=== PATIENT | female | born 1985 | race Two or more races ===

== ENCOUNTER 2017-01-31 14:23 | Inpatient (IN) | payer OTHER ==
[2017-01-31 15:49] VITALS: BMI 27.8
--- NOTE | 2017-01-31 17:20 | HP ---
Admission ROS [facility] - [facility] Chief Complaint: I WANT TO GO TO REHAB Allergies/Adverse Reactions: Allergies Allergy/AdvReac Type Severity Reaction Status Date / Time No Known Allergies Allergy Verified 01/31/17 17:18 History of Present Illness: 31 YEARS OLD FEMALE WITH LONG HISTORY OF ALCOHOL DEPENDENCE, DENIES MEDICAL ISSUE, HAS DEPRESSION IS ADMITTED TO REHAB Exam Limitations: No Limitations - Ebola screening Have you traveled outside of the country in the last 21 days: No Have you had contact with anyone from an Ebola affected area: No Have you been sick,other than usual withdrawal symptoms: No Do you have a fever: No - Review of Systems Constitutional: Weight Stable EENT: reports: Other (EYE GLASSES) Respiratory: reports: No Symptoms reported Cardiac: reports: No Symptoms Reported GI: reports: No Symptoms Reported : reports: No Symptoms Reported Musculoskeletal: reports: No Symptoms Reported Integumentary: reports: No Symptoms Reported Neuro: reports: No Symptoms reported Endocrine: reports: No Symptoms Reported Hematology: reports: No Symptoms Reported Psychiatric: reports: Judgement Intact, Orientated x3, Depressed Other Systems: Reviewed and Negative Patient History - Patient Medical History Hx Anemia: Yes (NO TREATMENT) Hx Asthma: No Hx Chronic Obstructive Pulmonary Disease (COPD): No Hx Cancer: No Hx Cardiac Disorders: No Hx Congestive Heart Failure: No Hx Hypertension: No Hx Hypercholesterolemia: No Hx Pacemaker: No HX Cerebrovascular Accident: No Hx Seizures: No Hx Dementia: No Hx Diabetes: No Hx Gastrointestinal Disorders: No Hx Liver Disease: No Hx Genitourinary Disorders: No Hx Sexually Transmitted Disorders: No Hx Renal Disease (ESRD): No Hx Thyroid Disease: No Hx Human Immunodeficiency Virus (HIV): No Hx Hepatitis C: No Hx Depression: Yes Hx Suicide Attempt: Yes (2014 ALCOHOL POISON) Hx Bipolar Disorder: No Hx Schizophrenia: No - Patient Surgical History Past Surgical History: Yes Other Surgical History: TOOTH 2011 - PPD History Previous Implant?: Yes Documented Results: Negative w/o proof Implanted On Prior R Admission?: No PPD to be Administered?: Yes - Reproductive History Patient is a Female of Child Bearing Age (11 -55 yrs old): Yes Last Menstrual Period: 12/28/16 Patient : No - Smoking Cessation Smoking history: Never smoked Have you smoked in the past 12 months: No Cigars Per Day: 0 Hx Chewing Tobacco Use: No Initiated information on smoking cessation: No - Substance & Tx. History Hx Alcohol Use: Yes Hx Substance Use: No Substance Use Type: Alcohol Hx Substance Use Treatment: Yes - Substances Abused Alcohol Route: Oral Frequency: Daily Amount used: 2 PINFLAQUITO CHIN Age of first use: 21 Date of Last Use: 01/19/17 Family Disease History - Family Disease History Family Disease History: Diabetes: Grandparent, Father (GORDY), Heart Disease: Father, Mother Admission Physical Exam [facility] - Vital Signs Vital Signs: Vital Signs - 24 hr 01/31/17 15:47 Temperature 97.8 F Pulse Rate 74 Respiratory 18 Rate Blood Pressure 100/71 - Physical General Appearance: Yes: No Apparent Distress, Nourished, Appropriately Dressed HEENTM: Yes: Hearing grossly Normal, Normal ENT Inspection, Normocephalic, Normal Voice Respiratory: Yes: Chest Non-Tender, Lungs Clear, Normal Breath Sounds, No Respiratory Distress, No Accessory Muscle Use Neck: Yes: Supple, Trachea in good position Breast: Yes: Breasts Symetrical Cardiology: Yes: Regular Rhythm, Regular Rate, S1, S2 Abdominal: Yes: Non Tender, Soft Genitourinary: Yes: Within Normal Limits Back: Yes: Normal Inspection Musculoskeletal: Yes: full range of Motion, Gait Steady Extremities: Yes: Normal Inspection, Normal Range of Motion, Non-Tender Neurological: Yes: Fully Oriented, Alert, Motor Strength 5/5, Normal Response, Depressed Affect Integumentary: Yes: Warm, Other (BRUISES BOTH ARMS) Lymphatic: Yes: Within Normal Limits - Diagnostic (1) Alcohol dependence with uncomplicated withdrawal Current Visit: Yes Status: Acute (2) Depression Current Visit: Yes Status: Acute Qualifiers: Depression Type: major depressive disorder Major depression recurrence : recurrent Active/Remission status: in partial remission Qualified Code(s): F33.41 - Major depressive disorder, recurrent, in partial remission (3) Vegan diet Current Visit: Yes Status: Acute Comment: DIETARY CONSULTATION Cleared for Admission [facility] - Detox or Rehab [facility] Level of Care: Observation Bed Detox Regimen/Protocol: Not Applicable Claeared for Rehab Admission: Yes [facility] Breath Alcohol Content Breath Alcohol Content: 0 Urine Pregancy Test - Result Urine Test Results: Negative- NO Line Present Urine Drug Screen - Results Drug Screen Negative: No Urine Drug Screen Results: TCA-Tricyclic Antidepress
[2017-01-31] MEDS ORDERED: MAGNESIUM CITRATE 300 ML BOTTLE PO PRN (17:27)
[2017-01-31] MEDS ORDERED: P-EPHED 60MG/TRIPROLIDI 2.5MG TABLET PO PRN (17:27)
[2017-01-31] MEDS ORDERED: MAG HYDROX/AL HYDROX/SIMETH 30 ML UNIT-DOSE CUP PO PRN (17:27)
[2017-01-31] MEDS ORDERED: MAGNESIUM HYDROX 2400MG/30ML ORAL SUSPENSION 30 ML CUP PO PRN (17:27)
[2017-01-31] MEDS ORDERED: hydrOXYzine PAMOATE 50 MG CAPSULE (FP) PO PRN (17:27)
[2017-01-31] MEDS ORDERED: ACETAMINOPHEN 325 MG TABLET (FP) PO PRN (17:27)
[2017-01-31] MEDS ORDERED: MENTHOL/PHENOL 1 EACH UD MM PRN (17:27)
[2017-01-31] MEDS ORDERED: guaiFENesin/D-METHORPHAN HB 10 ML UNIT-DOSE CUPS PO PRN (17:27)
[2017-01-31] MEDS ORDERED: IBUPROFEN 400 MG TABLET (FP) PO PRN (17:27)
[2017-01-31] MEDS ORDERED: LOPERAMIDE HCL 2 MG CAPSULE PO PRN (17:27)
[2017-01-31] MEDS ORDERED: TUBERCULIN PPD 5 TU/0.1ML VIAL ID ONE (18:39)
[2017-01-31] MEDS: THIAMINE HCL 100 MG TABLET (FP) PO SCH (21:36)
[2017-01-31] MEDS: diphenhydrAMINE HCL 50 MG CAPSULE PO PRN (21:37)
[2017-02-01 01:44] LABS: URINE APPEARANCE CLOUDY; URINE BILIRUBIN NEGATIVE (NEGATIVE); URINE BLOOD NEGATIVE (NEGATIVE); URINE COLOR YELLOW; URINE GLUCOSE (UA) NEGATIVE (NEGATIVE); URINE KETONE NEGATIVE (NEGATIVE); URINE NITRITE NEGATIVE (NEGATIVE); URINE PROTEIN NEGATIVE (NEGATIVE); URINE UROBILINOGEN NEGATIVE E.U./dl (0.2-1.0)
[2017-02-01 01:55] LABS: URINE LEUK ESTERASE 3+ (NEGATIVE)
[2017-02-01 02:00] LABS: URINE BACTERIA RARE /hpf (NONE SEEN); URINE MUCUS RARE; URINE RBC 2 /hpf (0-3); URINE WBC 8 /hpf (3-5)
[2017-02-01 10:05] LABS: MCH 29.2 pg (25.7-33.7); MCHC 32.4 g/dl (32.0-36.0); MEAN CELL VOLUME 90.1 fl (80-96); MEAN PLT VOLUME 7.5 fl (7.5-11.1); PLATELET COUNT 293 K/MM3 (134-434); RDW 16.9 % (11.6-15.6); WHITE BLOOD COUNT 6.4 K/mm3 (4.0-10.0)
[2017-02-01] MEDS: PRENATAL VITAMINS W/ FOLIC ACID TABLET (FP) PO SCH (10:16)
[2017-02-01 10:27] LABS: ALBUMIN 3.8 g/dl (3.4-5.0); ALK PHOS 41 U/L (45-117); ANION GAP 12 (8-16); BILIRUBIN,TOTAL 0.3 mg/dL (0.2-1.0); CALCIUM 8.9 mg/dL (8.5-10.1); CO2 25 mmol/L (21-32); CREATININE 0.6 mg/dL (0.55-1.02); GLUCOSE,RANDOM 77 mg/dL (74-106); SGOT/AST 17 U/L (15-37); SGPT/ALT 17 U/L (12-78); TOT PROT 6.8 g/dl (6.4-8.2)
[2017-02-01] MEDS: FLUoxetine HCL 20 MG CAPSULE (FP) PO SCH (10:59)
[2017-02-01] MEDS ORDERED: PNEUMOCOCCAL 23 VACCINE 0.5 ML VIAL IM ONE (12:00)
[2017-02-01] MEDS ORDERED: PNEUMOC 13-VAL CONJ-DIP CRM/PF 0.5 ML DISP.SYRIN IM ONE (12:00)
[2017-02-01 12:42] LABS: HIV 1 & 2 AB NEGATIVE; HIV 1 AGp24 NEGATIVE
--- NOTE | 2017-02-01 13:42 | EKG ---
Test Reason : Blood Pressure : / mmHG Vent. Rate : 074 BPM Atrial Rate : 074 BPM P-R Int : 168 ms QRS Dur : 088 ms QT Int : 396 ms P-R-T Axes : 037 034 042 degrees QTc Int : 439 ms NORMAL SINUS RHYTHM NORMAL ECG NO PREVIOUS ECGS AVAILABLE Confirmed by GIANA PINTO MD ([id number]) on 02/01/2017 1:42:21 PM Referred By: Confirmed By:GIANA PINTO MD
[2017-02-01] MEDS: PRAZOSIN HCL 1 MG CAPSULE PO SCH (21:44)
[2017-02-01] MEDS: THIAMINE HCL 100 MG TABLET (FP) PO SCH (21:45)
[2017-02-01] MEDS ORDERED: PRAZOSIN HCL 2 MG CAPSULE PO SCH (22:00)
[2017-02-02] MEDS: PRENATAL VITAMINS W/ FOLIC ACID TABLET (FP) PO SCH (10:22)
[2017-02-02] MEDS: FLUoxetine HCL 20 MG CAPSULE (FP) PO SCH (10:23)
--- NOTE | 2017-02-02 11:45 | HP ---
Psychiatrist Admission - Data Date of interview: 02/02/17 Admission source: [facility] Identifying data: This is the first admission to [address] [place] [address] rehabilitation for this 31 yo single AA female,resides with mother,employed as an Assisting teacher. Medical History: unremarkable Psychiatric History: First contact with psychiatrist about 3 years ago.She was admitted to [facility] after suicidal attempt (overdose,intoxicated with alcohol).She was in the hospital for 8 days,diagnosed with Bipolar disorder and placed on antidepressants,mood stabilizers (patient has no recollection of her meds that time).She was under care of psychiatrist at [facility].She was on different antidepressants.Currently she is on Prozac 60 mg po daily and Prazocin 2 mg po hs for insomnia. Physical/Sexual Abuse/Trauma History: denies Vital Signs: Vital Signs - 24 hr 02/02/17 02/02/17 02/02/17 00:30 03:30 07:39 Temperature 98.1 F Pulse Rate 93 H Respiratory 18 18 18 Rate Blood Pressure 92/60 Allergies/Adverse Reactions: Allergies Allergy/AdvReac Type Severity Reaction Status Date / Time No Known Allergies Allergy Verified 01/31/17 17:18 Date of last physical exam: 02/02/17 Concur with the findings of this exam: Yes - Substance Abuse/Tx History Hx Alcohol Use: Yes (reports drinking since 21 yo,heavy drinker since 27 yo) Hx Substance Use: No Substance Use Type: Alcohol Hx Substance Use Treatment: Yes (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) - Admission Criteria Previous failed treatment: Yes Poor recovery environment: Yes Comorbidities: Yes Lacks judgement: Yes Mental Status Exam - Mental Status Exam Alert and Oriented to: Time, Place, Person Cognitive Function: Grossly Intact Patient Appearance: Well Groomed Mood: Euthymic Affect: Mood Congruent Patient Behavior: Cooperative Speech Pattern: Clear Voice Loudness: Normal Thought Process: Goal Oriented Thought Disorder: Not Present Hallucinations: Denies Suicidal Ideation: Denies Homicidal Ideation: Denies Insight/Judgement: Fair Sleep: Fair Appetite: Good Muscle strength/Tone: Normal Gait/Station: Normal Psychiatric Findings - Problem List ([place] 1, 2,3) (1) Alcohol dependence with uncomplicated withdrawal Current Visit: Yes Status: Chronic (2) Substance induced mood disorder Current Visit: Yes Status: Chronic (3) Bipolar II disorder Current Visit: Yes Status: Suspected - Initial Treatment Plan Initial Treatment Plan: Continue Prozac 60 mg po daily,Prazocin 2 mg po hs,add Campral 333 mg 2 tab po tid and Topamax 25 mg po bid..Will monitor progress.
[2017-02-02] MEDS: TOPIRAMATE 25 MG TABLET (FP) PO SCH ×2 (14:27→21:40)
[2017-02-02] MEDS: ACAMPROSATE CALCIUM 333 MG TABLET.DR PO SCH ×2 (14:27→21:39)
[2017-02-02] MEDS: THIAMINE HCL 100 MG TABLET (FP) PO SCH (21:39)
[2017-02-02] MEDS: PRAZOSIN HCL 1 MG CAPSULE PO SCH ×2 (21:39→22:16)
[2017-02-03] MEDS: ACAMPROSATE CALCIUM 333 MG TABLET.DR PO SCH ×3 (06:19→21:39)
[2017-02-03] MEDS: PRENATAL VITAMINS W/ FOLIC ACID TABLET (FP) PO SCH (10:16)
[2017-02-03] MEDS: TOPIRAMATE 25 MG TABLET (FP) PO SCH ×2 (10:17→21:39)
[2017-02-03] MEDS: FLUoxetine HCL 20 MG CAPSULE (FP) PO SCH (10:17)
[2017-02-03] MEDS ORDERED: PT OWN MED DRAWER 7, Y5N ONE (19:39)
[2017-02-03] MEDS: THIAMINE HCL 100 MG TABLET (FP) PO SCH (21:39)
[2017-02-03] MEDS: PRAZOSIN HCL 1 MG CAPSULE PO SCH (21:42)
[2017-02-04] MEDS: ACAMPROSATE CALCIUM 333 MG TABLET.DR PO SCH ×3 (06:24→21:43)
[2017-02-04] MEDS ORDERED: PT OWN MED DRAWER 7, Y5N ONE (08:35)
[2017-02-04] MEDS: FLUoxetine HCL 20 MG CAPSULE (FP) PO SCH (10:28)
[2017-02-04] MEDS: TOPIRAMATE 25 MG TABLET (FP) PO SCH ×2 (10:28→21:44)
[2017-02-04] MEDS: PRENATAL VITAMINS W/ FOLIC ACID TABLET (FP) PO SCH (10:28)
[2017-02-04] MEDS: THIAMINE HCL 100 MG TABLET (FP) PO SCH (21:44)
[2017-02-04] MEDS: PRAZOSIN HCL 1 MG CAPSULE PO SCH (21:48)
[2017-02-05] MEDS: ACAMPROSATE CALCIUM 333 MG TABLET.DR PO SCH ×3 (06:43→21:35)
[2017-02-05] MEDS: TOPIRAMATE 25 MG TABLET (FP) PO SCH ×2 (10:28→21:35)
[2017-02-05] MEDS: PRENATAL VITAMINS W/ FOLIC ACID TABLET (FP) PO SCH (10:28)
[2017-02-05] MEDS: FLUoxetine HCL 20 MG CAPSULE (FP) PO SCH (10:28)
[2017-02-05] MEDS: PRAZOSIN HCL 1 MG CAPSULE PO SCH (21:35)
[2017-02-05] MEDS: THIAMINE HCL 100 MG TABLET (FP) PO SCH (21:35)
[2017-02-06] MEDS: ACAMPROSATE CALCIUM 333 MG TABLET.DR PO SCH ×3 (06:58→22:58)
[2017-02-06] MEDS: TOPIRAMATE 25 MG TABLET (FP) PO SCH ×2 (09:54→22:58)
[2017-02-06] MEDS: PRENATAL VITAMINS W/ FOLIC ACID TABLET (FP) PO SCH (09:54)
[2017-02-06] MEDS: FLUoxetine HCL 20 MG CAPSULE (FP) PO SCH (09:54)
[2017-02-06] MEDS: THIAMINE HCL 100 MG TABLET (FP) PO SCH (22:58)
[2017-02-06] MEDS: PRAZOSIN HCL 1 MG CAPSULE PO SCH (22:58)
[2017-02-07] MEDS: ACAMPROSATE CALCIUM 333 MG TABLET.DR PO SCH ×3 (06:19→21:54)
[2017-02-07] MEDS: PRENATAL VITAMINS W/ FOLIC ACID TABLET (FP) PO SCH (10:28)
[2017-02-07] MEDS: FLUoxetine HCL 20 MG CAPSULE (FP) PO SCH (10:28)
[2017-02-07] MEDS: TOPIRAMATE 25 MG TABLET (FP) PO SCH ×2 (10:28→21:54)
[2017-02-07] MEDS ORDERED: COLLOIDAL OATMEAL 1 BAR EACH TP PRN (14:13)
[2017-02-07] MEDS: HYDROCORTISONE 1% TOPICAL CREAM 30 GM TUBE TP SCH ×2 (18:30→21:55)
[2017-02-07] MEDS: PRAZOSIN HCL 1 MG CAPSULE PO SCH (21:54)
[2017-02-07] MEDS: diphenhydrAMINE HCL 50 MG CAPSULE PO PRN (21:55)
[2017-02-07] MEDS: THIAMINE HCL 100 MG TABLET (FP) PO SCH (21:56)
[2017-02-08] MEDS: ACAMPROSATE CALCIUM 333 MG TABLET.DR PO SCH ×3 (06:37→21:51)
[2017-02-08] MEDS: HYDROCORTISONE 1% TOPICAL CREAM 30 GM TUBE TP SCH ×4 (10:35→21:53)
[2017-02-08] MEDS: FLUoxetine HCL 20 MG CAPSULE (FP) PO SCH (10:35)
[2017-02-08] MEDS: TOPIRAMATE 25 MG TABLET (FP) PO SCH ×2 (10:35→21:51)
[2017-02-08] MEDS: PRENATAL VITAMINS W/ FOLIC ACID TABLET (FP) PO SCH (10:35)
[2017-02-08] MEDS ORDERED: PT OWN MED DRAWER 7, Y5N ONE (17:04)
[2017-02-08] MEDS: THIAMINE HCL 100 MG TABLET (FP) PO SCH (21:51)
[2017-02-08] MEDS: PRAZOSIN HCL 1 MG CAPSULE PO SCH (21:53)
[2017-02-09] MEDS: ACAMPROSATE CALCIUM 333 MG TABLET.DR PO SCH ×3 (06:12→22:07)
[2017-02-09] MEDS: FLUoxetine HCL 20 MG CAPSULE (FP) PO SCH (10:40)
[2017-02-09] MEDS: TOPIRAMATE 25 MG TABLET (FP) PO SCH ×2 (10:41→22:09)
[2017-02-09] MEDS: PRENATAL VITAMINS W/ FOLIC ACID TABLET (FP) PO SCH (10:41)
[2017-02-09] MEDS: HYDROCORTISONE 1% TOPICAL CREAM 30 GM TUBE TP SCH ×4 (10:41→22:07)
[2017-02-09] MEDS: THIAMINE HCL 100 MG TABLET (FP) PO SCH (22:07)
[2017-02-09] MEDS: PRAZOSIN HCL 1 MG CAPSULE PO SCH (22:13)
[2017-02-10] MEDS: ACAMPROSATE CALCIUM 333 MG TABLET.DR PO SCH ×3 (06:27→22:02)
[2017-02-10] MEDS: FLUoxetine HCL 20 MG CAPSULE (FP) PO SCH (10:53)
[2017-02-10] MEDS: PRENATAL VITAMINS W/ FOLIC ACID TABLET (FP) PO SCH (10:53)
[2017-02-10] MEDS: HYDROCORTISONE 1% TOPICAL CREAM 30 GM TUBE TP SCH ×4 (10:54→22:03)
[2017-02-10] MEDS: TOPIRAMATE 25 MG TABLET (FP) PO SCH ×2 (10:54→22:02)
[2017-02-10] MEDS: THIAMINE HCL 100 MG TABLET (FP) PO SCH (22:02)
[2017-02-10] MEDS: PRAZOSIN HCL 1 MG CAPSULE PO SCH (22:03)
[2017-02-11] MEDS: ACAMPROSATE CALCIUM 333 MG TABLET.DR PO SCH (07:15)
[2017-02-11 07:50] VITALS: BP 98/66; PULSE 67; TEMP 98.5
[2017-02-11] MEDS ORDERED: PT OWN MED DRAWER 7, Y5N ONE (09:05)
--- NOTE | 2017-02-11 09:28 | PN ---
Psychiatric Progress Note Vital Signs: Vital Signs Period Temp Pulse Resp BP Sys/Lechuga Pulse Ox Last 24 Hr 98.5 F 67-69 16-18 86-98/57-66 Date of Session: 02/11/17 Chief Complaint:: Discharge visit HPI: Patient addressed Alcohol dependence comorbid with Bipolar II disorder. ROS: unremarkable Current Medications: Active Medications Generic Name Dose Route Start Last Admin Trade Name Freq PRN Reason Stop Dose Admin Acamprosate 666 mg 02/02/17 14:00 02/11/17 07:15 Campral - PO 666 mg TID VALERIE Administration Acetaminophen 650 mg 01/31/17 17:27 Tylenol - PO Q4H PRN PAIN Al Hydroxide/Mg Hydroxide 30 ml 01/31/17 17:27 Mylanta Oral Suspension - PO Q6H PRN DYSPEPSIA Colloidal Oatmeal 1 applic 02/07/17 14:13 02/08/17 23:02 Aveeno Soap - TP 1 applic DAILY PRN Administration HYGEINE Diphenhydramine HCl 50 mg 01/31/17 17:27 02/07/17 21:55 Benadryl - PO 50 mg HSMR1 PRN Administration INSOMNIA Eucalyptus/Menthol/Phenol/Sorbitol 1 each 01/31/17 17:27 Cepastat Lozenge - MM Q4H PRN SORE THROAT Fluoxetine HCl 60 mg 02/01/17 10:45 02/10/17 10:53 Prozac - PO 60 mg DAILY VALERIE Administration Guaifenesin 10 ml 01/31/17 17:27 Robitussin Dm - PO Q6H PRN COUGH Hydrocortisone 1 applic 02/07/17 18:00 02/10/17 22:03 Hytone 1% Cream - TP Not Given QID VALERIE Hydroxyzine Pamoate 50 mg 01/31/17 17:27 Vistaril - PO Q4H PRN AGITATION Ibuprofen 400 mg 01/31/17 17:27 02/03/17 11:55 Motrin - PO 400 mg Q6H PRN Administration SEVERE PAIN Loperamide HCl 4 mg 01/31/17 17:27 Imodium - PO Q6H PRN DIARRHEA Magnesium Citrate 300 ml 01/31/17 17:27 Citroma - PO Q48H PRN CONSTIPATION Magnesium Hydroxide 30 ml 01/31/17 17:27 Milk Of Magnesia - PO DAILY PRN CONSTIPATION Prazosin HCl 4 mg 02/01/17 22:00 02/10/17 22:03 Minipress - PO Not Given HS VALERIE Multivit/Folic Acid/Iron 1 tab 02/01/17 10:00 02/10/17 10:53 Vitamins (Sjr) - PO 1 tab DAILY VALERIE Administration Pseudoephedrine/Triprolidine 1 combo 01/31/17 17:27 Actifed - PO TID PRN NASAL CONGESTION Thiamine HCl 100 mg 01/31/17 22:00 02/10/17 22:02 Vitamin B1 - PO 100 mg HS VALERIE Administration Topiramate 25 mg 02/02/17 13:45 02/10/17 22:02 Topamax - PO 25 mg BID VALERIE Administration Current Side Effect: No Lab tests ordered: No Lab tests reviewed: Yes Provider note:: Patient completed this program today .She has met her treatment goals partially and will continue to address her issues on outpatient basis at [facility].Pastient continues to find that her current medications :Prazocin 4 mg po hs,Prozac 60 mg po daily,Campral 333 mg po 2 tab tid and Topamax 25 mg po bid help to cope with depressed mood,anxiety, insomnia.Scripts for 30 days supply provided. Patient identifies areas of difficulties which contribute to relapse and ways,mechanisms she can utilize to maintain recovery process. Patient is stable for discharge today . Total face to face time:: 35 Mental Status Exam - Mental Status Exam Alert and Oriented to: Time, Place, Person Cognitive Function: Grossly Intact Patient Appearance: Well Groomed Mood: Euthymic Affect: Mood Congruent Patient Behavior: Cooperative Speech Pattern: Clear Voice Loudness: Normal Thought Process: Goal Oriented Thought Disorder: Not Present Hallucinations: Denies Suicidal Ideation: Denies Homicidal Ideation: Denies Insight/Judgement: Fair Sleep: Fair Appetite: Good Muscle strength/Tone: Normal Gait/Station: Normal Psychiatric Treatment Plan - Problem List (1) Alcohol dependence with uncomplicated withdrawal Current Visit: Yes (2) Substance induced mood disorder Current Visit: Yes (3) Bipolar II disorder Current Visit: Yes
[2017-02-11] MEDS: PRENATAL VITAMINS W/ FOLIC ACID TABLET (FP) PO SCH (10:11)
[2017-02-11] MEDS: TOPIRAMATE 25 MG TABLET (FP) PO SCH (10:12)
[2017-02-11] MEDS: FLUoxetine HCL 20 MG CAPSULE (FP) PO SCH (10:12)
[2017-02-11] MEDS: HYDROCORTISONE 1% TOPICAL CREAM 30 GM TUBE TP SCH (10:12)
== END 2017-02-11 13:38 | disposition home or self-care (01) | DRG 772 ==
LOC: YASAS 14:23 → Y3E 17:02
PROVIDERS: ADMIT Psychiatry & Neurology Psychiatry; ATTEND Psychiatry & Neurology Psychiatry
PROC: HZ42ZZZ Group Counseling for Substance Abuse Treatment, Cognitive-Behavioral (ICD-10-PCS; principal; 2017-02-11)
DX: F10.230 Alcohol dependence with withdrawal, uncomplicated (principal); F19.24 Other psychoactive substance dependence with psychoactive substance-induced mood disorder; F31.9 Bipolar disorder, unspecified; F33.41 Major depressive disorder, recurrent, in partial remission; Z86.2 Personal history of diseases of the blood and blood-forming organs and certain disorders involving the immune mechanism; Z71.3 Dietary counseling and surveillance
CPT/HCPCS: 36415; 80053; 81003; 81015; 85027; 86593; 87389; 90732; 93005; 93010; G0009